=== PATIENT | male | born 1945 | race Caucasian/White ===

== ENCOUNTER 2021-02-19 10:52 | Emergency (ER) | payer MEDICARE ==
[~2021-02-19] VITALS: Ht 160 cm; Wt 68.5 kg
--- NOTE | 2021-02-19 12:03 | NUR ---
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
--- NOTE | 2021-02-19 13:09 | NUR ---
EMT placed PIV via ultrasound, waiting for platelets family and pt updated.
[2021-02-19 13:40] VITALS: BP 121/73
--- NOTE | 2021-02-19 13:45 | NUR ---
Platlets 19, pt signed consent for blood products, x2 rn verification. VSS initiated. Will continue to monitor pt. Verified with blood bank re: blood type.
--- NOTE | 2021-02-19 13:52 | NUR ---
Pt with no adverse rxn to platlets, will increase rate to infuse over hour. VSS.
[2021-02-19 13:54] VITALS: BP 114/67
[2021-02-19 14:17] VITALS: BP 122/70
--- NOTE | 2021-02-19 14:18 | NUR ---
End transfusion, no rxns. Line flushed with saline. VSS.
== END 2021-02-19 15:09 | disposition home or self-care (01) ==
LOC: ED 12:10
DX: D69.59 Other secondary thrombocytopenia (principal)
CPT/HCPCS: 36415; 36430; 86850; 86900; 99285; P9037

== ENCOUNTER → 2021-02-19 | Outpatient (CLI) | payer MEDICARE ==
[~2021-02-19] MED LIST: ACET325T26 PO; BISA10SU4 PR; CHLO25TA4 PO; DEXA4TAB66 PO; FINA5TAB4 PO; LEVE500T53 PO; MAGN400O7 PO; SIMV40TA20 PO; TAMS-11 PO
[2021-02-19 10:26] LABS: BASOPHILS % (AUTO) 0 % (0-1); EOSINOPHILS % (AUTO) 0 % (1-7); LYMPHOCYTES % (AUTO) 6 % (22-44); MEAN CORPUSCULAR HEMOGLOBIN 31.2 pg (27.5-34.5); MEAN CORPUSCULAR HGB CONC 32.9 g/dL (33.2-36.2); MEAN PLATELET VOLUME 8.4 fL (7.4-10.4); MONOCYTES % (AUTO) 2 % (2-9); NEUTROPHILS % (AUTO) 91 % (42-75); RED BLOOD COUNT 4.91 x10^6/uL (4.38-5.82); RED CELL DISTRIBUTION WIDTH 18.4 % (9.4-14.8)
[2021-02-19 10:45] LABS: PLATELET COUNT 19 x10^3/uL (130-400)
== END | disposition home or self-care (01) ==
LOC: LAB 09:59
PROVIDERS: ATTEND Internal Medicine Hematology & Oncology
DX: C71.9 Malignant neoplasm of brain, unspecified (principal); R91.1 Solitary pulmonary nodule; D51.8 Other vitamin B12 deficiency anemias
CPT/HCPCS: 36415; 85025

== ENCOUNTER → 2021-02-20 | Outpatient (CLI) | payer MEDICARE ==
[2021-02-20 10:01] LABS: BASOPHILS % (AUTO) 0 % (0-1); EOSINOPHILS % (AUTO) 0 % (1-7); LYMPHOCYTES % (AUTO) 10 % (22-44); MEAN CORPUSCULAR HEMOGLOBIN 31.4 pg (27.5-34.5); MEAN CORPUSCULAR HGB CONC 33.6 g/dL (33.2-36.2); MEAN PLATELET VOLUME 9.1 fL (7.4-10.4); MONOCYTES % (AUTO) 3 % (2-9); NEUTROPHILS % (AUTO) 87 % (42-75); PLATELET COUNT 65 x10^3/uL (130-400); RED BLOOD COUNT 4.82 x10^6/uL (4.38-5.82); RED CELL DISTRIBUTION WIDTH 18.1 % (9.4-14.8)
== END | disposition home or self-care (01) ==
LOC: LAB 09:35
PROVIDERS: ATTEND Internal Medicine Hematology & Oncology
DX: C71.9 Malignant neoplasm of brain, unspecified (principal)
CPT/HCPCS: 36415; 85025